=== PATIENT | female | born 1975 | race Two or more races ===

== ENCOUNTER 2024-11-18 09:22 | Emergency (ER) | payer OTHER ==
[~2024-11-18] VITALS: Ht 170.2 cm; Wt 68.0 kg
[2024-11-18] MEDS ORDERED: TIROSINT88 MCG (09:43)
[2024-11-18] MEDS ORDERED: 0.9 % SODIUM CHLORIDE 1,000 ML IV ONE (10:15)
[2024-11-18] MEDS ORDERED: FAMOtidine 10 MG/ML (4ML VIAL) IV ONE (10:15)
[2024-11-18] MEDS ORDERED: FAMOTIDINE/PF 20 MG/2 ML VIAL ONE (10:22)
[2024-11-18 11:45] LABS: HEMATOCRIT 31.3 % (36.0-45.00); HEMOGLOBIN 10.8 g/dL (12.0-15.00); MEAN CELL VOLUME 76.3 fL (80.00-100.00); MEAN CORPUSCULAR HEMOGLOBIN 26.4 pg (27.00-32.0); MEAN CORPUSCULAR HGB CONC 34.7 g/dl (32.0-36.0); PLATELET COUNT 303 K/uL (150-450); RED CELL DISTRIBUTION WIDTH 16.1 % (11.5-14.5)
[2024-11-18 12:30] LABS: BILIRUBIN TOTAL 0.25 mg/dL (0.3-1.2); CALCIUM 9.2 mg/dL (8.5-10.1); CREATININE SERUM 0.8 mg/dL (0.55-1.02); GFR 75.92; GLOBULINA 4.3 G/DL (2.4-3.5); POTASSIUM 4.22 mEq/L (3.5-5.1); TOTAL PROTEIN 8.3 gm/dL (6.4-8.2)
[2024-11-18 13:48] LABS: URINE APPEARANCE Turbid; URINE BILIRRUBIN Small (NEGATIVE); URINE BLOOD Large; URINE COLOR Red; URINE GLUCOSE Negative (NEGATIVE); URINE LEUKOCYTE Moderate; URINE NITRATE Negative; URINE UROBILINOGEN 0.2 E.U./dl
[2024-11-18 13:52] LABS: URINE BACTERIA 343.9 uL (0.0-1933); URINE EPITHELIAL CELLS 13.2 uL (0.0-38.8); URINE WBC 114.6 uL (0.0-23.2)
[2024-11-18 14:54] LABS: URINE CAST 0.34 uL (0.0-1.40); URINE KETONE 40 (NEGATIVE); URINE PROTEIN 100 (NEGATIVE); URINE RBC > 10558.9 uL (0.0-20.8)
[2024-11-18] MEDS ORDERED: BACTRIM DS TAB1 EACH PO (15:15)
[2024-11-18] MEDS ORDERED: ZOFRAN8 MG PO (15:15)
[2024-11-18] MEDS ORDERED: PEPCID AC20 MG PO (15:15)
[2024-11-18] MEDS ORDERED: OSEL75CA PO (15:15)
== END 2024-11-18 15:27 | disposition home or self-care (01) ==
LOC: ER 09:24
PROVIDERS: General Practice
DX: R53.81 Other malaise (principal); J00 Acute nasopharyngitis [common cold]; N39.0 Urinary tract infection, site not specified; Z20.822 Contact with and (suspected) exposure to COVID-19; E03.8 Other specified hypothyroidism